=== PATIENT | male | born 1980 | race African-American/Black ===

== ENCOUNTER 2021-02-26 10:29 | Emergency (ER) | payer OTHER, BC ==
[~2021-02-26] VITALS: Ht 175.3 cm; Wt 135.6 kg
[~2021-02-26 10:29] MED LIST: SULF1TAB48 PO
[2021-02-26 10:30] VITALS: BP_SYST 172
--- NOTE | 2021-02-26 10:30 | NUR ---
ER at bedside examining patient.
--- NOTE | 2021-02-26 10:30 | NUR ---
Placed in room 1 . Placed on veterinarian small animal, blood pressure machine and pulse oximeter. To gown for exam. Side rails up.
--- NOTE | 2021-02-26 10:30 | NUR ---
Pt came into ER with complaint of abormal EKG at a check up at his physicians office. Pt is AAOX4 speaking full sentences denies any pain or SOB. Resting in gurney attached to monitor.
--- NOTE | 2021-02-26 10:31 | NUR ---
Sent by [facility] Francie Baca for Acute TN from an EKG done at 0845 today. Francie Baca reports the pt refused to go by ambulance and requested to drive themself.
--- NOTE | 2021-02-26 10:35 | NUR ---
ER dr. Sellers spoke with [facility] ER Dr. Castro about abnormal EKG and was confirmed to not be a STEMI. Will continue to monitor.
--- NOTE | 2021-02-26 10:35 | NUR ---
# 20 gauge angiocath placed to LAC. Use of asceptic technique. Opsite placed over site. Blood return noted. Blood for lab drawn from site. Flushed with 10 cc of normal saline. No evidence of infiltration noted. Patient tolerated well.
--- NOTE | 2021-02-26 10:35 | NUR ---
# 20 gauge angiocath placed to RBicep. Use of asceptic technique. Opsite placed over site. Blood return noted. Blood for lab drawn from site. Flushed with 10 cc of normal saline. No evidence of infiltration noted. Patient tolerated well.
--- NOTE | 2021-02-26 10:40 | NUR ---
Lab at bedside.
--- NOTE | 2021-02-26 10:42 | NUR ---
Faxed over EKG for second opinion to [facility]. Dr. Castro, [facility] ER Doc, is speaking to Dr. Sellers regarding pt EKG.
--- NOTE | 2021-02-26 10:45 | NUR ---
X-ray at bedside.
[2021-02-26] MEDS ORDERED: ASPIRIN 81 MG TAB.CHEW PO ONE (11:00)
[2021-02-26 11:19] LABS: BASOPHILS # (AUTO) 0.1 K/uL (0.0-0.2); BASOPHILS % (AUTO) 0.7 % (0.0-2.0); EOSINOPHILS # (AUTO) 0.1 K/uL (0.0-0.4); EOSINOPHILS % (AUTO) 0.9 % (0.0-4.0); HEMATOCRIT 44.4 % (36-54); HEMOGLOBIN 14.9 g/dL (14.0-18.0); LYMPHOCYTES # (AUTO) 1.7 K/uL (1.0-5.5); LYMPHOCYTES % (AUTO) 20.3 % (20.5-51.5); MEAN CORPUSCULAR HEMOGLOBIN 30 pg (27-31); MEAN CORPUSCULAR HGB CONC 34 % (32-36); MEAN CORPUSCULAR VOLUME 88 fL (79.0-98.0); MONOCYTES # (AUTO) 0.8 K/uL (0.0-1.0); MONOCYTES % (AUTO) 9.2 % (1.7-9.3); NEUTROPHILS # (AUTO) 5.8 K/uL (1.8-7.7); NEUTROPHILS % (AUTO) 68.9 % (40.0-70.0); PLATELET COUNT (AUTO) 258 K/uL (130-430); RED BLOOD CELL COUNT(AUTO) 5.05 MIL/uL (4.2-6.2); RED CELL DISTRIBUTION WIDTH 14.1 % (9.0-15.0); WHITE BLOOD COUNT (AUTO) 8.4 K/uL (4.8-10.8)
[2021-02-26 11:31] LABS: CALCIUM 10.1 mg/dL (8.4-11.0); CREATININE 1.29 mg/dL (0.55-1.30)
--- NOTE | 2021-02-26 11:34 | NUR ---
IV in LAC was pulled out. Discontinued IV with gauze and tape applied.
[2021-02-26 11:42] LABS: ALBUMIN 4.4 g/dL (3.4-4.8); TOTAL BILIRUBIN 0.5 mg/dL (0.0-1.0)
--- NOTE | 2021-02-26 12:38 | NUR ---
spoke with Ankita (small animal caretaker). Pt consented to disclosing information. Updated on pt status.
--- NOTE | 2021-02-26 13:00 | NUR ---
Faxed over repeated EKG for second opinion to [facility]. Dr. Castro, [facility] ER Doc, is speaking to Dr. Sellers regarding pt EKG.
--- NOTE | 2021-02-26 13:01 | NUR ---
Repeat EKG faxed to [facility]. Per MD order.
--- NOTE | 2021-02-26 13:10 | NUR ---
ER Dr. Sellers spoke with [facility] ER Dr. Castro to reconfirm repeat EKG. No change in status. Repeat troponin ordered.
--- NOTE | 2021-02-26 13:16 | NUR ---
Lab at bedside.
--- NOTE | 2021-02-26 13:20 | NUR ---
Pt resting in [place] VSS no distress noted at this time. Breathing even and unlabored lungs CTA bilaterally. Pt denies pain.
[2021-02-26 14:38] VITALS: BP_SYST 122
--- NOTE | 2021-02-26 14:38 | NUR ---
Patient given written and verbal discharge instructions and verbalizes understanding. ER MD discussed with patient the results and treatment provided. Patient in stable condition. ID arm band removed. IV catheter removed intact and dressing applied, no active bleeding. . Patient educated on pain management and to follow up with PMD. Pain Scale 0/10. Opportunity for questions provided and answered. Medication side effect fact sheet provided.
== END 2021-02-26 14:38 | disposition home or self-care (01) ==
LOC: SED 10:29
DX: R94.31 Abnormal electrocardiogram [ECG] [EKG] (principal); I10 Essential (primary) hypertension; Z79.899 Other long term (current) drug therapy
CPT/HCPCS: 36415; 71045; 80053; 83880; 84484; 85025; 93005; 99285